=== PATIENT | male | born 1995 | race Caucasian/White ===

== ENCOUNTER 2017-08-29 14:59 | Emergency (ER) | payer OTHER, BC ==
[2017-08-29] MEDS ORDERED: KETOROLAC 30 MG/ML 1 ML VIAL IVP STA (15:51)
[2017-08-29] MEDS ORDERED: ONDANSETRON 4 MG/2 ML VIAL IVP STA (15:51)
[2017-08-29] MEDS ORDERED: SODIUM CHLORIDE 0.9% 1,000 ML IV STA (15:51)
[2017-08-29] MEDS ORDERED: MAG HYDROX/AL HYDROX/SIMETH 30 ML, HYOSCYAMINE ELIXIR 10 ML, CIMETIDINE HCL 300 MG, LID... PO STA ×4 (15:52)
--- NOTE | 2017-08-29 15:53 | ED ---
Abdominal Pain HPI - General Chief Complaint: Abdominal Pain Stated Complaint: Vomiting/Blood Time Seen by Provider: 08/29/17 15:31 Source: patient, RN notes reviewed, old records reviewed Mode of arrival: ambulatory Limitations: no limitations - History of Present Illness Initial Comments: 2-year-old male presents emergency Department chief complaint of multiple episodes of diarrhea today, as well as a few episodes of vomiting. Patient reports that he had one episode of bloody vomiting. The symptoms AFTER HE ATE PIZZA TODAY. PATIENT STATES THAT HE IS CONCERNED ABOUT HER BEING OUT OF PROBLEMS. PATIENT REPORTS FAMILY HISTORY OF GALLBLADDER DISEASE. HE DENIES ANY OTHER RECENT ILLNESSES OR SYMPTOMS. HE REPORTS THAT HE'S BEEN HAVING SOME BACK PAIN WELL. PATIENT DENIES ANY FEVER OR CHILLS. DENIES ANY COUGH OR SHORTNESS OF BREATH OR UPPER RESPIRATORY INFECTION SYMPTOMS. - Related Data Previous Rx's Medication Instructions Recorded Omeprazole 40 mg PO DAILY #20 capsule. 08/29/17 Ondansetron Odt [Zofran Odt] 4 mg PO Q8HR PRN #12 tab 08/29/17 Sucralfate [Carafate] 1 gm PO BID #20 tablet 08/29/17 Allergies Allergy/AdvReac Type Severity Reaction Status Date / Time No Known Allergies Allergy Verified 08/29/17 15:21 Review of Systems ROS Statement: Those systems with pertinent positive or pertinent negative responses have been documented in the HPI. ROS Other: All systems not noted in ROS Statement are negative. Past Medical History Past Medical History: No Reported History History of Any Multi-Drug Resistant Organisms: None Reported Past Surgical History: No Surgical Hx Reported Past Psychological History: No Psychological Hx Reported Smoking Status: Never smoker Past Alcohol Use History: Occasional Past Drug Use History: None Reported General Exam - General Exam Comments Initial Comments: This is a 22-year-old male. No distress. Limitations: no limitations General appearance: alert, in no apparent distress Head exam: Present: atraumatic, normocephalic, normal inspection Eye exam: Present: normal appearance, PERRL, EOMI. Absent: scleral icterus, conjunctival injection, periorbital swelling ENT exam: Present: normal exam, mucous membranes moist Neck exam: Present: normal inspection. Absent: tenderness, meningismus, lymphadenopathy Respiratory exam: Present: normal lung sounds bilaterally. Absent: respiratory distress, wheezes, rales, rhonchi, stridor Cardiovascular Exam: Present: regular rate, normal rhythm, normal heart sounds. Absent: systolic murmur, diastolic murmur, rubs, gallop, clicks GI/Abdominal exam: Present: soft, tenderness (Right upper quadrant and right lower quadrant tenderness.), normal bowel sounds. Absent: distended, guarding, rebound, rigid Extremities exam: Present: normal inspection, full ROM, normal capillary refill. Absent: tenderness, pedal edema, joint swelling, calf tenderness Back exam: Present: normal inspection Neurological exam: Present: alert, oriented X3, CN II-XII intact Psychiatric exam: Present: normal affect, normal mood Skin exam: Present: warm, dry, intact, normal color. Absent: rash Course Vital Signs 08/29/17 08/29/17 15:12 18:37 Temperature 97.2 F L 98.3 F Pulse Rate 106 H 110 H Respiratory 18 15 Rate Blood Pressure 120/88 119/57 O2 Sat by Pulse 97 99 Oximetry Medical Decision Making - Medical Decision Making 22-year-old male presents emergency Department chief complaint of 1 day of diarrhea, and vomiting. He reports it is bloody episode of vomiting. This occurred this morning after eating pizza. Patient reports continued have some pain. He states he has subjective gallbladders pain radiates towards his back and shoulder. At this time patient is mainly tender in the right lower quadrant. Patient labwork was reviewed has a significantly elevated white blood cell count 23,000 with a left shift. Also following labs were normal. Patient was informed of this. Underwent CT abdomen and pelvis with contrast. The CT was performed and normal. There was some evidence of stool within the rectosigmoid colon consistent with diarrhea. Patient was reevaluated after fluids and is in pain medication and nausea medication. Patient informed of CT being negative. Discussed strict return parameters. Discussed following up with primary care provider. Patient agrees to treatment plan will comply. Return parameters were discussed. - Lab Data Result diagrams: 08/29/17 16:10 08/29/17 16:10 Lab Results 08/29/17 08/29/17 08/29/17 Range/Units 16:10 16:10 17:03 WBC 23.3 H (3.8-10.6) k/uL RBC 5.58 (4.30-5.90) m/uL Hgb 17.1 (13.0-17.5) gm/dL Hct 48.1 (39.0-53.0) % MCV 86.2 (80.0-100.0) fL MCH 30.7 (25.0-35.0) pg MCHC 35.6 (31.0-37.0) g/dL RDW 12.7 (11.5-15.5) % Plt Count 359 (150-450) k/uL Neutrophils % 87 % Lymphocytes % 7 % Monocytes % 4 % Eosinophils % 1 % Basophils % 0 % Neutrophils # 20.2 H (1.3-7.7) k/uL Lymphocytes # 1.6 (1.0-4.8) k/uL Monocytes # 0.9 (0-1.0) k/uL Eosinophils # 0.3 (0-0.7) k/uL Basophils # 0.1 (0-0.2) k/uL Hyperchromasia Slight Sodium 145 (137-145) mmol/L Potassium 4.2 (3.5-5.1) mmol/L Chloride 103 (98-107) mmol/L Carbon Dioxide 26 (22-30) mmol/L Anion Gap 16 mmol/L BUN 18 (9-20) mg/dL Creatinine 0.99 (0.66-1.25) mg/dL Est GFR (MDRD) Af Amer >60 (>60 ml/min/1.73 sqM) Est GFR (MDRD) Non-Af >60 (>60 ml/min/1.73 sqM) Glucose 99 (74-99) mg/dL Calcium 10.8 H (8.4-10.2) mg/dL Total Bilirubin 0.8 (0.2-1.3) mg/dL AST 60 H (17-59) U/L ALT 110 H (21-72) U/L Alkaline Phosphatase 76 (38-126) U/L Total Protein 8.5 H (6.3-8.2) g/dL Albumin 5.2 H (3.5-5.0) g/dL Amylase 87 (30-110) U/L Lipase 62 (23-300) U/L Urine Color Yellow Urine Appearance Clear (Clear) Urine pH 5.5 (5.0-8.0) Ur Specific [place] 1.031 (1.001-1.035) Urine Protein 1+ H (Negative) Urine Glucose (UA) Negative (Negative) Urine Ketones Trace H (Negative) Urine Blood Negative (Negative) Urine Nitrite Negative (Negative) Urine Bilirubin 1+ H (Negative) Urine Urobilinogen 2.0 (<2.0) mg/dL Ur Leukocyte Esterase Negative (Negative) Urine WBC 1 (0-5) /hpf Urine Bacteria Rare H (None) /hpf Urine Mucus Many H (None) /hpf Disposition Clinical Impression: Vomiting and diarrhea, Leukocytosis Disposition: HOME SELF-CARE Condition: Good Instructions: Acute Nausea and Vomiting (ED) Additional Instructions: Advised to follow-up promptly with primary care provider. The alarming signs or symptoms occur. Patient should take Motrin Tylenol for pain. Increase her fluid intake. Clear liquid diet for the next 24-48 hours. Use nausea medication as needed. Prescriptions: Omeprazole 40 mg PO DAILY #20 capsule. Ondansetron Odt [Zofran Odt] 4 mg PO Q8HR PRN #12 tab PRN Reason: Nausea Sucralfate [Carafate] 1 gm PO BID #20 tablet Referrals: None,Stated [Primary Care Provider] - 1-2 days Miryam Xiong MD [STAFF PHYSICIAN] - 1-2 days Time of Disposition: 18:25
[2017-08-29 16:21] LABS: Basophils # (A) 0.1 k/uL (0-0.2); Basophils % (A) 0 %; Eosinophils # (A) 0.3 k/uL (0-0.7); Eosinophils % (A) 1 %; HCT 48.1 % (39.0-53.0); HGB 17.1 gm/dL (13.0-17.5); Hyperchromasia Slight; Lymphocytes # (A) 1.6 k/uL (1.0-4.8); Lymphocytes % (A) 7 %; MCH 30.7 pg (25.0-35.0); MCHC 35.6 g/dL (31.0-37.0); MCV 86.2 fL (80.0-100.0); Mean Platelet Volume 6.5; Monocytes # (A) 0.9 k/uL (0-1.0); Monocytes % (A) 4 %; Neutrophils # (A) 20.2 k/uL (1.3-7.7); Neutrophils % (A) 87 %; Platelet Count 359 k/uL (150-450); RBC 5.58 m/uL (4.30-5.90); RDW 12.7 % (11.5-15.5); WBC 23.3 k/uL (3.8-10.6)
[2017-08-29 16:27] LABS: ALT 110 U/L (21-72); AST 60 U/L (17-59); Albumin 5.2 g/dL (3.5-5.0); Alkaline Phosphatase 76 U/L (38-126); Amylase 87 U/L (30-110); Anion Gap 16 mmol/L; Blood Urea Nitrogen 18 mg/dL (9-20); Calcium 10.8 mg/dL (8.4-10.2); Carbon Dioxide 26 mmol/L (22-30); Chloride 103 mmol/L (98-107); Glucose 99 mg/dL (74-99); Lipase 62 U/L (23-300); Potassium 4.2 mmol/L (3.5-5.1); Sodium 145 mmol/L (137-145); Total Bilirubin 0.8 mg/dL (0.2-1.3); Total Protein 8.5 g/dL (6.3-8.2)
[2017-08-29] MEDS ORDERED: RX INFO: IV CONTRAST WAS GIVEN 1 EACH MISC MISCELLANE PRN (16:49)
[2017-08-29 17:16] LABS: Appearance,Urine Clear (Clear); Bacteria,Urine Rare /hpf; Bilirubin,Urine 1+ (Negative); Blood,Urine Negative (Negative); Color,Urine Yellow; Glucose,Urine (UA) Negative (Negative); Ketones,Urine Trace (Negative); Leukocyte Esterase,Urine Negative (Negative); Mucus,Urine Many /hpf; Nitrite,Urine Negative (Negative); PH, Urine 5.5 (5.0-8.0); Protein,Urine 1+ (Negative); Specific Gravity,Urine 1.031 (1.001-1.035); WBC,Urine 1 /hpf (0-5)
--- NOTE | 2017-08-29 18:07 | CT ---
EXAMINATION TYPE: CT abdomen pelvis w con DATE OF EXAM: 08/29/2017 COMPARISON: NONE HISTORY: pelvic pain with fever. CT DLP: 1344.2 mGycm Automated exposure control for dose reduction was used. TECHNIQUE: Helical acquisition of images was performed from the lung bases through the pelvis. CONTRAST: Performed without Oral Contrast and with IV Contrast, patient injected with 100 mL of Omnipaque 300. FINDINGS: Lung bases are clear. There is no pleural effusion. Liver spleen pancreas gallbladder appear normal. Bile ducts are not dilated. There is no adrenal mass. Kidneys show satisfactory contrast opacificatio n. There is no hydronephrosis. There is no retroperitoneal adenopathy. There is no ascites. I see no intestinal wall thickening. There are no dilated loops. Appendix is partly visualized and appears nor mal. Bladder is almost empty. There is no sign of a pelvic mass. There is fluid in the rectosigmoid colon. I see no bony destructive process. IMPRESSION: NEGATIVE CT SCAN OF THE ABDOMEN AND PELVIS. THERE IS FLUID IN THE RECTOSIGMOID COLON CONSISTENT WITH DIARRHEA.
--- NOTE | 2017-08-29 18:08 | XR ---
EXAMINATION TYPE: XR chest 2V DATE OF EXAM: 08/29/2017 COMPARISON: 11/21/2009 HISTORY: Right upper quadrant pain TECHNIQUE: Frontal and lateral views of the chest are obtained. FINDINGS: Heart and mediastinum are normal. Lungs are clear. Diaphragm is normal. Bony thorax appear s normal. IMPRESSION: Normal chest. No change.
[2017-08-29] MEDS ORDERED: METOCLOPRAMIDE 5 MG/ML 2 ML VIAL IVP STA (18:26)
[2017-08-29] MEDS ORDERED: diphenhydrAMINE 50 MG/ML 1 ML VIAL IVP STA (18:26)
[2017-08-29 19:08] VITALS: BP 124/65; PULSE 103; RESP 16; TEMP 98
== END 2017-08-29 19:17 | disposition home or self-care (01) ==
LOC: EC 14:59
DX: R11.10 Vomiting, unspecified (principal); R19.7 Diarrhea, unspecified; D72.829 Elevated white blood cell count, unspecified; R10.31 Right lower quadrant pain; Z83.79 Family history of other diseases of the digestive system
CPT/HCPCS: 99285; 96374; 96375 ×3; 96361; 36415; 80053; 82150; 83690; 85025; 81001; 71046; 74177; J1200; J2765; J2405; J1885; Q9967

== ENCOUNTER → 2024-08-01 | Outpatient (CLI) | payer BC ==
[2024-08-01 13:28] VITALS: BP 155/88; PULSE 98; RESP 16; TEMP 98.3
--- NOTE | 2024-08-01 14:01 | P.SLEEP ---
History of Present Illness DATE: 08/01/2024 CONSULTATION/NEW PATIENT EVALUATION HISTORY OF PRESENT ILLNESS/SLEEP-WAKE EVALUATION: 29-year-old gentleman had b een evaluated in the sleep center for possible obstructive sleep apnea hypopnea syndrome. SLEEP SCHEDULE: Usually sleep schedule from 9 PM to 5 AM on weekdays and from 9 PM to 9 AM on weekend. FALLING ASLEEP: No problems with falling asleep. DURING SLEEP: Patient has loud snoring and witnessed episodes of stop breathing during the sleep according to his . Positive history of dry mouth and episodes of gasping for air. Patient wakes up from sleep 5 times with 2 episodes of nocturia. No history of hypnogogical hallucinations, sleep paralysis, or cataplexy. DURING THE DAY/WAKE STATE: In the morning patient wake up tired, falling asleep during the day. [place] sleepiness scale is in extremely high range of 19. Patient may take up to 5 naps during the day. PAST MEDICAL HISTORY: Mostly negative. PAST SURGICAL HISTORY: None. MEDICATIONS: None. SOCIAL HISTORY: Please see below. FAMILY HISTORY: Please see below. REVIEW OF SYSTEMS: Loud snoring, multiple awakenings from sleep, sleepiness during the day. No fevers. No double vision. No recent chest pain. No shortness of breath. No abdominal pain. No bleeding episodes. No blood in urine. No seizure episodes. PHYSICAL EXAMINATION: GENERAL: A pleasant patient without any distress. VITAL SIGNS: Please see below, weight 279 pounds, BMI 42.4. HEENT: PERRLA, EOMI. Evaluation of oropharynx showed tongue protrudes midline, low position of soft palate Mallampati 4. NECK: Supple. No JVD. Thyroid is not palpable. 18.5 inches in circumference. LUNGS: Clear to percussion and to auscultation. Good air exchange. No wheezing or rhonchi. HEART: S1, S2 regular. No murmurs, gallops or rubs. ABDOMEN: Soft and nontender. Bowel sounds are present. No organomegaly appreciated. EXTREMITIES: No clubbing or cyanosis. [employer]CE: Awake, alert, and oriented x3. Cranial nerves 2 to 7 intact. There is no fasciculation or atrophy noted. No focal deficits observed. ASSESSMENT: 1. Loud snoring, witnessed episodes of stop breathing during the sleep, extremely low position of soft palate Mallampati 4, wide neck 18.5 inches in circumference, sleepiness with [place] Sleepiness Scale 19. Obstructive sleep apnea hypopnea syndrome. 2. Obesity, BMI 42.4. 3. Hypertension in the office. 4. Loud snoring. PLAN: 1. Home sleep apnea test for evaluation of patient's breathing during sleep. 2. Following plan after reading sleep study. 3. Preferable position during sleep on the side. 4. No driving if patient feels any sleepiness. Patient is aware of civil and criminal liability for unsafe driving. 5. Sleep hygiene with regular sleep time for at least 7.5-8 hours. 6. Watching and losing weight. Thank you very much for referring this patient for consultation. Sincerely, Orville Millan MD, PhD, FAASM. Diplomat of [place] [employer], Sleep Medicine Board by [employer] [employer] Un[employer]ing Machine Operator of [facility] [place] cc: Past Medical History Past Medical History: No Reported History History of Any Multi-Drug Resistant Organisms: None Reported Past Surgical History: No Surgical Hx Reported Past Anesthesia/Blood Transfusion Reactions: No Reported Reaction Past Psychological History: No Psychological Hx Reported Smoking Status: Never smoker Past Alcohol Use History: Occasional Past Drug Use History: None Reported - Past Family History Father Family Medical History: Cancer, Hyperlipidemia, Hypertension Additional Family Medical History / Comment(s): snoring, sleep apnea Mother Family Medical History: Diabetes Mellitus Medications and Allergies Home Medications Medication Instructions Recorded Confirmed Type Omeprazole 40 mg PO DAILY #20 capsule. 08/29/17 Rx Ondansetron Odt [Zofran Odt] 4 mg PO Q8HR PRN #12 tab 08/29/17 Rx Sucralfate [Carafate] 1 gm PO BID #20 tablet 08/29/17 Rx Allergies Allergy/AdvReac Type Severity Reaction Status Date / Time No Known Allergies Allergy Verified 08/29/17 15:21 Physical Exam Vitals: Vital Signs Temp Pulse Resp BP Pulse Ox 08/01/24 13:27 98.3 F 98 16 155/88 96 Intake and Output 07/31/24 08/01/24 08/01/24 22:59 06:59 14:59 Other: Weight 126.552 kg Sleep Note - Sleep Data ESS Total: 19 - Sleep Note Sleep Note: Temperature: 98.3 F Pulse Rate: 98 Respiratory Rate: 16 Blood Pressure: 155/88 SpO2: 96 Height: 5 ft 8 in Weight: 126.552 kg BMI: Neck Circumference: 18.5
== END ==
LOC: 3 N SLEEP 13:16
PROVIDERS: ATTEND Internal Medicine
DX: G47.33 Obstructive sleep apnea (adult) (pediatric) (principal); I10 Essential (primary) hypertension; E66.9 Obesity, unspecified; Z68.41 Body mass index [BMI] 40.0-44.9, adult
CPT/HCPCS: 99202

== ENCOUNTER → 2024-08-17 | Outpatient (CLI) | payer BC ==
--- NOTE | 2024-08-20 10:59 | P.PCN ---
Description of Procedure: CLINICAL: A home sleep apnea test has been done for confirmation of possible obstructive sleep apnea-hypopnea syndrome. DESCRIPTION OF PROCEDURE: RESULTS: Recording time was 9 hours 26 minutes. Evaluation time was 8 hours 13 minutes. Evaluation time is sufficient for making conclusion about results of the test. Raw data of sleep recording has been reviewed and is adequate. Respiratory channel showed 20 apneas and 192 hypopneas. Apnea-hypopnea index was 25.8 per hour. Pulse rate in the range between minimum 52, maximum 110, average 72 by computer calculation. Lowest desaturation was 84%. IMPRESSION: 1. Moderate Obstructive Sleep Apnea Hypopnea Syndrome. Please see other impressions from consultation. PLAN: 1. The patient will be started on auto-PAP treatment for correction of respiratory abnormallities during sleep. 2. I will see patient for follow up visit to discuss results of the test, evaluate clinical response on treatment with PAP therapy and make any necessary adjustments related to mask fitting, pressure, and humidification. 3. Watching weight. 4. Sleep hygiene with regular time in bed for at least 8 hours. 5. No driving if feeling any sleepiness. Thank you very much for allowing me to participate in the management of your patient. Sincerely, Orville Millan MD, PhD, FAASM Diplomat of [place] [employer] Sleep Medicine Board of [place] [employer] Professional Services Specialist of [facility] [place]
== END ==
LOC: 3 N SLEEP 13:02
PROVIDERS: ATTEND Internal Medicine
DX: G47.33 Obstructive sleep apnea (adult) (pediatric) (principal)